=== PATIENT | male | born 1955 | race Caucasian/White ===

== ENCOUNTER 2025-05-27 16:18 | Outpatient (CLI) | payer OTHER | END 2025-05-27 16:19 | disposition home or self-care (01) | LOC: BICCT 16:18 | PROVIDERS: ATTEND Internal Medicine Cardiovascular Disease | DX: Z13.6 Encounter for screening for cardiovascular disorders (principal); E78.5 Hyperlipidemia, unspecified; Z82.49 Family history of ischemic heart disease and other diseases of the circulatory system | CPT/HCPCS: 75571 ==